=== PATIENT | female | born 1960 | race Caucasian/White ===

== ENCOUNTER 2017-12-23 05:57 | Observation (INO) | payer OTHER ==
[~2017-12-23] VITALS: Ht 162.6 cm; Wt 110.7 kg
[2017-12-23] MEDS ORDERED: LOSA50TA39 PO (07:03)
[2017-12-23] MEDS ORDERED: BUPIVACAINE-MPF 0.25% 30 ML VIAL INJ ONE (07:13)
[2017-12-23] MEDS ORDERED: BUPIVACAINE-MPF 0.5% 30 ML VIAL INJ ONE (07:20)
[2017-12-23] MEDS ORDERED: SEVOFLURANE 250 ML BTL INH ONE (07:45)
[2017-12-23] MEDS ORDERED: ONDANSETRON 4 MG/2 ML VIAL ONE (07:45)
[2017-12-23] MEDS ORDERED: ONDANSETRON 4 MG/2 ML VIAL IVP PRN ×2 (07:45→08:20)
[2017-12-23] MEDS ORDERED: NEOSTIGMINE 1:1000 10 MG/10 ML VIAL ONE (07:45)
[2017-12-23] MEDS ORDERED: MORPHINE SULFATE 4 MG/ML SYR IM/IVP PRN (07:45)
[2017-12-23] MEDS ORDERED: KETOROLAC 30 MG/ML VIAL ONE (07:45)
[2017-12-23] MEDS ORDERED: ROCURONIUM 50 MG/5 ML VIAL IV ONE (07:45)
[2017-12-23] MEDS ORDERED: DEXAMETHASONE 4 MG/ML VIAL ONE (07:45)
[2017-12-23] MEDS ORDERED: GLYCOPYRROLATE 0.2 MG/ML VIAL ONE (07:45)
[2017-12-23] MEDS ORDERED: ACETAMINOPHEN/CODEINE 300/30MG 1 TAB PO PRN (07:45)
[2017-12-23] MEDS ORDERED: HYDROmorphone PFS 2 MG/ML SYR ONE (08:04)
[2017-12-23] MEDS ORDERED: HYDROmorphone PFS 2 MG/ML SYR IVP PRN (08:20)
[2017-12-23 09:48] VITALS: BP 132/68
--- NOTE | 2017-12-23 09:48 | NUR ---
RECEIVED PT VIA GURNEY FROM [facility]UR[facility], WITH AN IV LINE ON RIGHT HAND G. 2O AND AN IV FLUID OF LR. PT IS AWAKE AND VITAL SIGNS TAKEN, SIDE RAILS UP AND CALL LIGHT WITHIN REACH. NO SIGN OF DISTRESS NOTED. WILL MONITOR.
--- NOTE | 2017-12-23 11:00 | NUR ---
PT IS ASLEEP LYING ON THE BED WITH ON THE BEDSIDE. NO SIGN OF DISTRESS NOTED. CALL LIGHT WITHIN REACH.WILL MONITOR.
[2017-12-23 16:00] VITALS: BP 126/77
--- NOTE | 2017-12-23 16:05 | NUR ---
PT IS AWAKE AND LYING ON THE BED, VITAL SIGNS TAKEN. NO SIGNN OF DISTRESS NOTED. CALL LIGHT WITHIN REACH. WILL MONITOR.
--- NOTE | 2017-12-23 19:20 | NUR ---
ENDORSED PT TO ANTHROPOLOGY LECTURER NURSE FOR CONTINUITY OF CARE. PT IS AWAKE AND STABLE AT THIS TIME.
--- NOTE | 2017-12-23 19:21 | NUR ---
RECEIVED REPORT AT PT BEDSIDE FROM DAY SHIFT RN, FOR CONTINUITY OF CARE. PATIENT IS AWAKE, A/OX4 ON ROOM AIR. ABLE TO MAKE NEEDS KNOWN, ABLE TO FOLLOW COMMANDS. PT IS S/P LAP OVARIAN CYSTECTOMY WITH COVERED INCISION ON LOWER ABDOMEN CLEAN & INTACT. PATIENT HAS PERIPHERAL IV SITE TO RIGHT HAND 20G ASYMPTOMATIC, INTACT, PATENT. RESPIRATIONS EVEN AND UNLABORED. UPDATED BOARD. DISCUSSED PLAN OF CARE WITH PT, PT VERBALIZED UNDERSTANDING. VITAL SIGNS WNL. PT STABLE, NO SIGNS OF DISTRESS NOTED AT THIS TIME. BED IN LOWEST POSITION, CALL LIGHT WITHIN REACH. WILL CONTINUE TO MONITOR.
--- NOTE | 2017-12-23 22:15 | NUR ---
PT C/O 5/10 ABDOMINAL PAIN. MEDICATED PT WITH TYLENOL #3, PT TOLERATED WELL. WILL REASSESS PAIN IN ONE HOUR.
[2017-12-24] VITALS: BP 110/59
--- NOTE | 2017-12-24 | NUR ---
VITAL SIGNS WNL. PT STABLE, NO SIGNS OF DISTRESS NOTED AT THIS TIME. BED IN LOWEST POSITION, CALL LIGHT WITHIN REACH. WILL CONTINUE TO MONITOR.
--- NOTE | 2017-12-24 02:15 | NUR ---
PT RESTING COMFORTABLY IN BED. PT STABLE, NO SIGNS OF DISTRESS NOTED AT THIS TIME. BED IN LOWEST POSITION, CALL LIGHT WITHIN REACH. WILL CONTINUE TO MONITOR.
--- NOTE | 2017-12-24 03:54 | NUR ---
PT UP AND BRUSHING HAIR AT THIS TIME. NO SIGNS OF DISTRESS NOTED AT THIS TIME. WILL CONTINUE TO MONITOR.
--- NOTE | 2017-12-24 06:25 | NUR ---
DR Yolanda HERNANDEZ CAME AND SAW PT. SAID IT WAS OK FOR PT TO GO HOME.
[2017-12-24 06:27] LABS: BASOPHILS % (AUTO) 0.1 % (0.0-2.0); EOSINOPHILS % (AUTO) 0.1 % (0.0-4.0); HEMATOCRIT 38.6 % (36-48); HEMOGLOBIN 12.8 g/dL (12.0-16.0); LYMPHOCYTES # (AUTO) 1.6 K/uL (2.5-16.5); LYMPHOCYTES % (AUTO) 12.4 % (20.5-51.1); MEAN CORPUSCULAR HEMOGLOBIN 29 pg (27-31); MEAN CORPUSCULAR HGB CONC 33 g/dL (33-37); MEAN CORPUSCULAR VOLUME 88.1 fL (80-94); MONOCYTES # (AUTO) 0.7 K/uL (0.8-1.0); MONOCYTES % (AUTO) 5.4 % (1.7-9.3); NEUTROPHILS # (AUTO) 10.7 K/uL (1.8-7.7); PLATELET COUNT (AUTO) 215 K/uL (140-450); RED BLOOD CELL COUNT(AUTO) 4.38 MIL/uL (4.20-5.40); WHITE BLOOD COUNT (AUTO) 13.1 K/uL (4.8-10.8)
--- NOTE | 2017-12-24 07:24 | NUR ---
ENDORSED PT TO DAY SHIFT RN FOR CONTINUITY OF CARE. PT IN STABLE CONDITION.
--- NOTE | 2017-12-24 07:25 | NUR ---
RECEIVED REPORT FROM WORKFORCE MANAGER NURSE. PATIENT SITTING IN BED TALKING WITH FAMILY MEMBER AT BEDSIDE. NO DISTRESS NOTED. DENIES ANY PAIN AT THIS TIME. RESPIRATIONS EVEN, UNLABORED, ON ROOM AIR. AAOX4, CALM, COOPERATIVE, SKIN COLOR APPROPRIATE TO ETHNICITY, WARM TO TOUCH. HAS ABDOMINAL SURGICAL WOUNDS S/P LEFT OVARIAN CYSTECOMY AND SALPHYNGOPHRECTOMY 12/23/17, DRESSING IS DRY AND INTACT. LUNGS CTA ON ALL LOBES. REVIEWED PLAN OF CARE WITH PATIENT. PER DR. HERNANDEZ, PATIENT TO BE DISCHARGED HOME AFTER BREAKFAST TODAY. PATIENT ALREADY AWARE. SAFETY MEASURES IN PLACE, CALL LIGHT WITHIN REACH. WILL CONTINUE TO MONITOR.
[2017-12-24 08:00] VITALS: BP 132/77
--- NOTE | 2017-12-24 08:37 | NUR ---
PATIENT HAS BEEN SCREENED AND CATEGORIZED HIGH NUTRITION RISK. PATIENT WILL BE SEEN WITHIN 1-2 DAYS OF ADMISSION. 12/24/17 12/25/[address]
--- NOTE | 2017-12-24 09:35 | NUR ---
DISCHARGE INSTRUCTIONS PROVIDED TO PATIENT/FAMILY MEMBER AT BEDSIDE IN PREFERRED LANGUAGE OF UPPER SORBIAN. EDUCATED PATIENT/FAMILY ON FOLLOW-UP VISIT WITH DR. HERNANDEZ WITHIN 1 WEEK, NEW/CHANGED MEDICATIONS REGIMEN, DIET REGIMEN, AND WOUND CARE MANAGEMENT. DID NOT REMOVE BANDAGES ON ABDOMINAL AREA PER DR. HERNANDEZ AND SURGERY WAS LESS THAN 24 HRS AGO, DID NOT WANT THE WOUNDS TO BLEED. ALL BELONGINGS/PRESCRIPTIONS WITH PATIENT. ANSWERED ALL OF PATIENT/FAMILY MEMBERS QUESTIONS REGARDING DISCHARGE. PATIENT/FAMILY VERBALIZED COMPLETE UNDERSTANDING. IV SITE REMOVED WITH MINIMAL BLOOD AND LUMEN COMPLETELY INTACT. ID BANDS REMOVED. PATIENT ALREADY DRESSED UP AND READY TO GO. ESCORTED PATIENT DOWN TO LOBBY VIA AMBULATION WITH STEADY GAIT. REFUSED WHEELCHAIR UPON DISCHARGE. PATIENT DISCHARGED AT THIS TIME TO HOME VIA PRIVATE VEHICLE IN STABLE CONDITION.
== END 2017-12-24 09:35 | disposition home or self-care (01) ==
LOC: MDS 05:57 → MMU 06:05 → MDS 08:30 → MTU 08:52 → MDS 12-24 09:35 → MTU 12-24 11:08 → UNDOADMOB 12-24 11:08
PROVIDERS: ADMIT Obstetrics & Gynecology; ATTEND Obstetrics & Gynecology
DX: N83.202 Unspecified ovarian cyst, left side (principal)
CPT/HCPCS: 36415; 58661; 85025; 86886; 86900; 86901; 87081; 88307; G0378; J0690; J1100; J1170; J1885; J2405; J2710; J3490; J7030; J7060; J7120